=== PATIENT | female | born 2000 | race Caucasian/White ===

== ENCOUNTER 2023-07-14 03:07 | Emergency (ER) | payer BC, SELFPAY ==
[2023-07-14 03:11] VITALS: BP 134/77; PULSE 93; RESP 19; TEMP 36.3; O2SAT 100
--- NOTE | 2023-07-14 05:39 | ED.WOUNDLAC ---
HPI - Wound/Laceration General Chief Complaint: Wound/Laceration Stated Complaint: left middle finger lac Time Seen by Provider: 07/14/23 04:27 History of Present Illness HPI narrative: patient presents to the emergency department with a laceration of her finger. She was hanging her plus she is on the wall on a mesh in background. She cut her finger while he being help. Bleeding has resolved since waiting in the emergency department. She was concerned she may need stitches Related Data Home Medications Medication Instructions Recorded Confirmed No Home Medications 07/14/23 07/14/23 Allergies Allergy/AdvReac Type Severity Reaction Status Date / Time No Known Allergies Allergy Verified 07/14/23 03:08 Review of Systems Review of Systems: negative except for what is documented in the HPI Exam Narrative: GENERAL: Well-appearing, well-nourished, and in no acute distress. HEAD: Normocephalic, atraumatic. EYES: unremarkble ENT: Nares clear, no rhinorrhea or epistaxis. Mucous membranes moist. NECK: Supple. CHEST: Clear to auscultation. No respiratory distress. HEART: Regular rate and rhythm. EXTREMITIES: Normal range of motion. No edema. third left finger medial laceration SKIN: Warm, dry, no rash. 1cm superficial avulsion laceration medial NEURO: No focal deficits. Alert and oriented x3. PSYCH: Normal mood and affect. Course Vital Signs Vital signs: Vital Signs Temperature 36.3 C L 07/14/23 03:11 Pulse Rate 93 07/14/23 03:11 Respiratory Rate 19 07/14/23 03:11 Blood Pressure 134/77 07/14/23 03:11 Pulse Oximetry 100 07/14/23 03:11 Oxygen Delivery Room Air 07/14/23 03:11 Temperature 36.3 C L 07/14/23 03:11 Pulse Rate 93 07/14/23 03:11 Respiratory Rate 19 07/14/23 03:11 Blood Pressure 134/77 07/14/23 03:11 Pulse Oximetry 100 07/14/23 03:11 Oxygen Delivery Room Air 07/14/23 03:11 Procedures Laceration Laceration 1: Date: 07/14/23 Site: hand Description: flap Pre-repair: irrigated ====== Skin Level ====== Skin layer closed with: dermabond ====== Subcutaneous Layer ====== ====== Muscle Layer ====== ====== Tendon Layer ====== Discharge Plan Discharge Clinical Impression: Laceration Patient Disposition: Home, Self-Care Condition: Stable Instructions: Skin Adhesive Care (ED) Prescriptions: No Action No Home Medications Follow-up/Referrals: PHYSICIAN,ELECTRICAL ENGINEERING PROFESSOR [Primary Care Provider] - Time of Disposition: 05:43
== END 2023-07-14 06:38 | disposition home or self-care (01) ==
PROVIDERS: Emergency Provider Emergency Medicine
DX: S61.213A Laceration without foreign body of left middle finger without damage to nail, initial encounter (principal); W26.9XXA Contact with unspecified sharp object(s), initial encounter
CPT/HCPCS: 12001; 99282

== ENCOUNTER 2024-02-05 13:00 | Outpatient (CLI) | payer BC, SELFPAY ==
--- NOTE | ~2024-02-05 | US_ITS ---
EXAMINATION: US pelvic complete w TV INDICATION: Pelvic pain with cramping Comparison:No prior studies for comparison. TECHNIQUE: Multiple transabdominal and endovaginal sonographic images of the pelvis performed. FINDINGS: The uterus measures 8.2 x 3.7 x 4.5 cm. The endometrial complex measures 5 mm. The right ovary measures 2.3 x 2.1 x 1.3 cm and the left ovary measures 1.8 x 1 x 1.7 cm. There are small follicles in each ovary. Normal doppler signal in both ovaries. There is no free fluid in the pelvis. There are no abnormal masses seen on either side. IMPRESSION: 1. Unremarkable pelvic ultrasound. Reviewed, dictated and finalized at location B.
== END 2024-02-05 13:01 ==
PROVIDERS: PCP Nurse Practitioner Family; Visit Provider Nurse Practitioner Family
DX: N83.209 Unspecified ovarian cyst, unspecified side (principal)
CPT/HCPCS: 76830; 76856